=== PATIENT | female | born 1970 | race Caucasian/White ===

== ENCOUNTER 2023-10-29 09:54 | Emergency (ER) | payer SELFPAY ==
[~2023-10-29] VITALS: Ht 154.9 cm; Wt 68.0 kg
[2023-10-29 10:17] VITALS: O2SAT 98
[2023-10-29] MEDS: KETOROLAC 30MG/ML VIAL IM ONE (11:10)
[2023-10-29] MEDS: ACETAMINOPHEN 500MG TABLET PO ONE (11:10)
[2023-10-29] MEDS ORDERED: NAPR500T7 MT (12:19)
[2023-10-29 12:30] VITALS: BP 140/77; PULSE 82; RESP 19; TEMP 97.5
== END 2023-10-29 15:25 | disposition home or self-care (01) ==
LOC: ER 10:42
DX: M75.32 Calcific tendinitis of left shoulder (principal); I10 Essential (primary) hypertension; Z98.890 Other specified postprocedural states
CPT/HCPCS: 81025; 73030; 96372; 99283; J1885; Z7610